=== PATIENT | male | born 1945 | race Caucasian/White ===

== ENCOUNTER 2018-10-21 06:53 | Day surgery (SDC) | payer MEDICARE, OTHER ==
--- NOTE | 2018-10-21 06:32 | History and Physical - [facility] ---
CHIEF COMPLAINT/HISTORY OF CHIEF COMPLAINT: This patient with a history of intractable lumbar radiculopathy had a spinal cord stimulator trial on 10/08/18 with 75+% pain control. Due to the failure of all therapy and the success of the trial he presents today for implantation of a permanent system. PAST MEDICAL HISTORY: Peripheral neuropathy, diabetes Type 2, and hypertension. PAST SURGICAL HISTORY: None. MEDICATIONS ON ADMISSION: List to be provided. ALLERGIES: None. FAMILY/PSYCHOSOCIAL HISTORY: Social history - Caffeine. Family history - Diabetes, coronary artery disease, and cancer. SYSTEMS REVIEW: The patient is appropriate in no acute distress. The remainder of the systems review is positive for glasses, chronic head and neck infections, peripheral neuropathy, headaches, blood pressure problems, and reflux. PHYSICAL EXAMINATION: Height is 5'7", weight is 260. No vital signs. HEENT: Within normal limits. LUNGS: Clear. HEART: Rapid and regular. ABDOMEN: Nontender. MUSCULOSKELETAL: Examination of the musculoskeletal system shows pain and tenderness across the back and into the left lower extremities primarily with right lower extremity extension. There are mild motor and sensory abnormalities to the left. Ambulation - Assistive device utilized. NEUROLOGIC: Cranial nerves are intact. IMPRESSION: LUMBAR RADICULOPATHY, ICD-10 CODE M54.16 AND M54.17. PLAN: The patient is here for implantation of a permanent spinal cord stimulator after the success of the trial and the failure of all other therapies. The procedure will be considered outpatient, although an overnight stay will be evaluated. JOB NUMBER: [id number] MTDD
[~2018-10-21 06:53] MED LIST: ACETAMINOPHEN 1,000 MG/100 ML BTL IVPB ONE; CLINDAMYCIN 600MG/50ML PREMIX 600 MG/50 ML BAG IVPB ONE; FAMOTIDINE 20MG TABLET PO ONE; MECLIZINE 25 MG TABLET PO ONE; METOCLOPRAMIDE 10 MG TABLET PO ONE
[2018-10-21] MEDS ORDERED: PROPOFOL 10 MG/ML VIAL IV ONE (06:54)
[2018-10-21] MEDS ORDERED: FENTANYL PF 100MCG/2ML VIAL IV ONE (06:54)
[2018-10-21] MEDS ORDERED: MIDAZOLAM HCL 2MG/2ML VIAL IV ONE (06:54)
[2018-10-21] MEDS ORDERED: LIDOCAINE 2% MDV (20MG/ML) 20ML VIAL IV ONE (06:54)
[2018-10-21 07:14] LABS: BLEEDING TIME 4.5 MINUTES (1.5-7.0)
[2018-10-21 07:26] LABS: INR 1.1; PARTIAL THROMBOPLASTIN TIME 25.4 SECONDS (24.5-39.1); PROTHROMBIN TIME (PATIENT) 10.8 SECONDS (9.5-12.1)
[2018-10-21] MEDS ORDERED: RINGERS SOLUTION,LACTATED 1,000 ML IV ONE ×2 (08:13→10:32)
[2018-10-21] MEDS ORDERED: LIDOCAINE 1% W/EPI 1:100,000 MDV 20 ML VIAL SQ ONE (10:47)
[2018-10-21] MEDS ORDERED: BUPIVACAINE 0.5% W/EPI MPF 30 ML VIAL SQ ONE (10:48)
[2018-10-21] MEDS ORDERED: HYDROCODONE/APAP 7.5/325MG TABLET PO ONE (11:26)
--- NOTE | 2018-10-22 19:54 | RADIOLOGY REPORT ---
EXAM: SPINE, 1 VIEW HISTORY: SPINAL CORD STIMULATOR DEVICE PLACEMENT. TECHNIQUE: A single AP view of the thoracic spine was performed. COMPARISON: None. FINDINGS: A spinal stimulator device is in place with the leads extending to the T6-7 level. No complicating features are identified. Moderate multilevel degenerative changes are present throughout the thoracic region. IMPRESSION: SPINAL STIMULATOR ELECTRODES EXTEND TO THE T6-7 LEVEL. JOB NUMBER: [id number] MTDD
--- NOTE | 2018-10-23 07:13 | Operative Note ---
DATE OF SURGERY: 10/21/2018 PREOPERATIVE DIAGNOSIS: Bilateral lumbar radiculopathy, ICD10 code M54.16 and M54.17. OPERATION: 1. Fluoroscopic-guided epidural access left T11-12, placement of spinal cord stimulator lead 1, [employer] Infinion 16, 6 electrodes, positioned left of T7. 2. Fluoroscopic-guided epidural access left T12-L1, placement of spinal cord stimulator lead 2, [employer] Infinion 16, 6 electrodes, positioned right of T7. 3. Complex programming of lead 1 over 20 minutes followed by complex programming of lead 2 over 20 minutes. 4. Incision, subcutaneous dissection, and anchoring of lead 1 and lead 2 to supraspinous fascia with a [employer] locking anchor. 5. Incision, subcutaneous dissection, and creation of pouch at right flank for placement of generator, [employer] programmable rechargeable WaveWriter. 6. Tunneling between midline pouch, placement of external portion of lead 1 and lead 2 into generator pouch, each lead interfaced with generator. 7. Placement of generator pouch, placement of leads into the pouch, closure of both incisions, Stratafix suture 2-0 fascia, 3-0 skin, and Dermabond closure to approximate edges of the wound. 8. Complex recovery room programming internal generator home use 2 stimulators 20 minutes. ANESTHESIA PROVIDER: Krysten Palomo INDICATION: This patient presents with a history of intractable thoracic radiculopathy. Due to the failure of therapy and the success of a trial, he presents today for implantation of permanent system. PROCEDURE: Intravenous line, vital sign monitoring, IV sedation. Prepped and draped with sterile technique. With the patient prone, sterile prep, sterile technique, draped, local for infiltration, the epidural interspace left of midline at 11-12 and 12-1 both identified, marked, infiltrated with local. Two separate curved access Epimed needles with loss of resistance, the space was accessed. Atraumatic. No blood, no CSF at each. At 11-12, spinal cord stimulator lead 1, a [employer] Infinion 16, 6 electrodes positioned left of T7. With the access at 12-1, spinal cord stimulator lead 2, [employer] Infinion 16, 6 electrodes positioned right at T7. Complex programming of lead 1 over 20 minutes followed by complex programming of lead 2 over 20 minutes with the patient awake resulted in complete pattern stimulation across the back and into the legs. Patient indicating we had all the areas of the pain. He was given the option to implant and continue to program or remove. Heq opted to implant. The question was repeated with the same response. The skin below both needles was then infiltrated with local. Incision was made and subcutaneous dissection was conducted to supraspinous fascia. Each of the leads was then anchored to the supraspinous fascia with a [employer] locking anchor. At the right flank, a site picked by the patient for the generator, skin infiltrated, incision made, and subcutaneous dissection was conducted to form a pouch of suitable size and depth for the generator, a [employer] programmable rechargeable. Antibiotic irrigation and Bovie for hemostasis at both sites. The leads were then tunneled in the generator pouch, and each lead was interfaced to the generator, [employer] programmable rechargeable Wave Head Teller. The generator was placed into its pouch. The leads were placed into their own pouch, and then both incisions were closed using Stratafix suture, 2-0 fascia, and 3-0 skin. Dermabond closure was then used to approximate the edges of both incisions. He was transported to recovery room stable. There were no side effects from the procedure or sedation. When fully awake and alert, complex programming of the 2 leads and the generator performed over 20 minutes recovery room re-establishing stimulation and pain control to all the appropriate areas. By his request, he was prepared for discharge home. DISCHARGE INSTRUCTIONS: 1. The sites to remain clean and dry. No showering or bathing in any way that would disrupt the dressings. Although the Dermabond will allow showering, he should not sit in water. 2. Standard medications resumed including the antibiotic Levaquin. He will take 500 mg once a day for 14 days. 3. The office will contact the patient in the next 12-24 hours to set up a time in the next 7-10 days to evaluate the sites. Until then, he is to keep his activities low. All other instructions provided, numbers to contact if problems given. He will take his antibiotic as instructed. [facility]
== END 2018-10-21 11:45 | disposition home or self-care (01) ==
LOC: SUR 06:53
PROVIDERS: ATTEND Pain Medicine Interventional Pain Medicine
DX: M54.16 Radiculopathy, lumbar region (principal); M54.17 Radiculopathy, lumbosacral region; E11.9 Type 2 diabetes mellitus without complications; Z79.4 Long term (current) use of insulin; I10 Essential (primary) hypertension; E78.00 Pure hypercholesterolemia, unspecified
CPT/HCPCS: 63663; 63688; 01936; 95972; 85730; 85610; 85002; 72020; J3010; C1820; C1883; J7120